=== PATIENT | male | born 1985 | race African-American/Black ===

== ENCOUNTER 2017-07-05 13:21 | Emergency (ER) | payer BC ==
[2017-07-05 14:15] LABS: ADD MAN DIFF? NO
[2017-07-05 14:20] LABS: BASO # 0.1 x10^3/uL (0.0-0.2); BASO % 1 % (0-3); EOS % 0 % (0-3); HEMOGLOBIN 12.8 g/dL (13.0-17.5); LYMPH # 1.7 x10^3/uL (1.0-4.8); LYMPH % 13 % (24-48); MEAN CORPUSCULAR HEMOGLOBIN 24 pg (25-35); MEAN CORPUSCULAR HGB CONC 33 g/dL (31-37); MEAN CORPUSCULAR VOLUME 72 fL (79-100); MONO # 0.9 x10^3/uL (0.0-1.1); MONO % 7 % (0-9); NEUT # 10.2 x10^3uL (1.8-7.7); NEUT % 79 % (31-73); PLATELET COUNT 356 x10^3/uL (140-400); RED BLOOD COUNT 5.46 x10^6/uL (4.30-5.70); RED CELL DISTRIBUTION WIDTH 15.7 % (11.5-14.5); WHITE BLOOD COUNT 12.9 x10^3/uL (4.0-11.0)
[2017-07-05 14:26] LABS: IONIZED CALCIUM 1.17 mmol/L (1.13-1.32)
[2017-07-05 14:27] LABS: ANION GAP 15 (6-14); BLOOD UREA NITROGEN 16 mg/dL (8-26); CALCIUM 9.6 mg/dL (8.5-10.1); CARBON DIOXIDE 21 mmol/L (21-32); CHLORIDE 103 mmol/L (98-107); GFR 104.1; GLUCOSE 108 mg/dL (70-99); POTASSIUM 3.6 mmol/L (3.5-5.1); SODIUM 139 mmol/L (136-145)
[2017-07-05 14:33] LABS: ALK PHOS 72 U/L (46-116); ALT (SGPT) 27 U/L (16-63); AST (SGOT) 16 U/L (15-37); DIRECT BILIRUBIN 0.1 mg/dL (0.0-0.2); LIPASE 66 U/L (73-393); MAGNESIUM 1.8 mg/dL (1.8-2.4); TOTAL BILIRUBIN 0.5 mg/dL (0.2-1.0); TOTAL PROTEIN 7.4 g/dL (6.4-8.2)
[2017-07-05 14:34] LABS: TROPONINI < 0.017 ng/mL (0.000-0.055)
[2017-07-05] MEDS: IV NORMAL SALINE 1000ML BAG 1,000 ML IV (14:38)
[2017-07-05] MEDS: 0.9 % SODIUM CHLORIDE 10 ML DISP.SYRIN. IV (14:38)
[2017-07-05 14:39] LABS: NT-PRO BNP 49 pg/mL (0-124)
[2017-07-05 14:39] LABS: CKMB INDEX 0.3 % (0-4); CKMB MASS 0.7 ng/mL (0.0-3.6); CREATINE KINASE 234 U/L (39-308)
[2017-07-05] MEDS: fentaNYL PF VIAL 100 MCG/2 ML VIAL IV (14:39)
[2017-07-05 14:40] LABS: THYROID STIM HORMONE (TSH) 0.485 uIU/mL (0.358-3.74)
[2017-07-05 14:52] LABS: BILIRUBIN,URINE NEGATIVE (NEG); CLARITY,URINE CLEAR; COLOR,URINE YELLOW; GLUCOSE,URINE NEGATIVE (NEG); NITRITE,URINE NEGATIVE (NEG); PROTEIN,URINE NEGATIVE (NEG-TRACE)
[2017-07-05 14:54] LABS: ANISOCYTOSIS SLIGHT; HYPOCHROMIA SLIGHT; MICROCYTOSIS MOD; OVALOCYTES FEW; PLT ESTIMATE ADEQUATE (ADEQUATE); POLYCHROMASIA SLIGHT; TARGET CELLS OCC
[2017-07-05 14:55] LABS: SCHISTOCYTES OCC
[2017-07-05 14:59] LABS: AMPHETAMINE/METHAMPHETAMINE NEG (NEG); BARBITURATES NEG (NEG); BENZODIAZEPINES NEG (NEG); CANNABINOIDS POS (NEG); COCAINE NEG (NEG); ETHANOL, URINE NEG (NEG); METHADONE NEG (NEG); OPIATES NEG (NEG); PHENCYCLIDINE NEG (NEG)
[2017-07-05 15:11] LABS: BACTERIA,URINE 0 /HPF (0-FEW); RBC,URINE 0 /HPF (0-2)
== END 2017-07-05 15:40 | disposition home or self-care (01) ==
LOC: ER 13:21
DX: R20.2 Paresthesia of skin (principal); F12.10 Cannabis abuse, uncomplicated; R11.0 Nausea; R29.0 Tetany; R10.9 Unspecified abdominal pain; R06.4 Hyperventilation; K21.9 Gastro-esophageal reflux disease without esophagitis; F17.210 Nicotine dependence, cigarettes, uncomplicated; F10.20 Alcohol dependence, uncomplicated
CPT/HCPCS: 36415; 71046; 80048; 80076; 80307; 81001; 82310; 82553; 83690; 83735; 83880; 84443; 84484; 85025; 93005; 96361; 96374; 96375; 99285-25; J2060; J3010; J7030